=== PATIENT | female | born 1955 | race Caucasian/White ===

== ENCOUNTER → 2022-05-08 | Outpatient (CLI) | payer OTHER ==
[~2022-05-08] MED LIST: B-121000 MC2 PO; CALC.25 PO; DILTIAZEM HCL PO
== END | disposition home or self-care (01) ==
LOC: LAB 13:17 → LAB SHORT 13:17
DX: C54.1 Malignant neoplasm of endometrium (principal)
CPT/HCPCS: 88305; 88342